=== PATIENT | female | born 1965 | race American Indian/Alaskan Native ===

== ENCOUNTER 2023-09-23 12:46 | Outpatient (CLI) | payer OTHER | END 2023-09-23 23:59 | disposition home or self-care (01) | LOC: RAD 12:46 | PROVIDERS: ATTEND Podiatrist Foot & Ankle Surgery | DX: S82.899 Other fracture of unspecified lower leg (principal); M79.671 Pain in right foot; M19.071 Primary osteoarthritis, right ankle and foot; X58.XXXD Exposure to other specified factors, subsequent encounter | CPT/HCPCS: 73700 ==